=== PATIENT | male | born 1990 | race Caucasian/White ===

== ENCOUNTER 2016-07-10 10:10 | Emergency (ER) | payer OTHER ==
[~2016-07-10] VITALS: Ht 170.2 cm; Wt 81.6 kg
[2016-07-10 10:14] VITALS: BP 126/74
--- NOTE | 2016-07-10 10:19 | NUR ---
PT AMBULATED TO 4 AT THIS TIME. Addendum: 07/10/16 at 1020 by [facility] PT AMBULATED TOBED 3 AT THIS TIME.
[2016-07-10] MEDS ORDERED: ONDANSETRON 4 MG ODT PO ONE (10:30)
--- NOTE | 2016-07-10 10:40 | NUR ---
Bernadette AT BEDSIDE.
[2016-07-10 11:04] VITALS: BP 126/74
--- NOTE | 2016-07-10 11:04 | NUR ---
Patient discharged with v/s stable. Written and verbal after care instructions given and explained. Patient alert, oriented and verbalized understanding of instructions. Ambulatory with steady gait. All questions addressed prior to discharge. ID band removed. Patient advised to follow up with PMD. Rx of BENTYL AND ZOFRAN given. Patient educated on indication of medication including possible reaction and side effects. Opportunity to ask questions provided and answered.
== END 2016-07-10 11:04 | disposition home or self-care (01) ==
LOC: MED 10:10
DX: G89.29 Other chronic pain (principal); R10.9 Unspecified abdominal pain; R11.2 Nausea with vomiting, unspecified; R19.7 Diarrhea, unspecified; J45.909 Unspecified asthma, uncomplicated; Z88.0 Allergy status to penicillin; Z88.6 Allergy status to analgesic agent
CPT/HCPCS: 99283; S0119

== ENCOUNTER 2016-10-16 19:40 | Emergency (ER) | payer OTHER ==
[~2016-10-16] VITALS: Ht 170.2 cm; Wt 74.8 kg
[2016-10-16 19:49] VITALS: BP 125/86
--- NOTE | 2016-10-16 19:58 | NUR ---
Patient ambulated to bed 08.
--- NOTE | 2016-10-16 20:10 | NUR ---
26 Y/O M W/C/O LACERATION TO R HAND R/T LACERATION X TODAY. BLEEDING UNDER CONTROL. PA MADE AWARE.
[2016-10-16] MEDS ORDERED: BACITRACIN OINT 500 UNITS/GM PKT TP ONE (20:27)
--- NOTE | 2016-10-16 20:27 | NUR ---
PT REFUSED XRAY, PA NOTIFIED.
--- NOTE | 2016-10-16 20:35 | NUR ---
LIDOCAINE 1 % ADMINSITERED BY PA TO LACERATION R HAND.
[2016-10-16] MEDS ORDERED: LIDOCAINE 1% 500 MG/50 ML VIAL INJ ONE (21:05)
[2016-10-16 21:24] VITALS: BP 127/75
--- NOTE | 2016-10-16 21:24 | NUR ---
Patient discharged with v/s stable. Written and verbal after care instructions given and explained. Patient alert, oriented and verbalized understanding of instructions. Ambulatory with steady gait. All questions addressed prior to discharge. ID band removed. Patient advised to follow up with PMD IN 3 DAYS OR RETURN TO ER IF CONDITION WORSENS. Rx of KEFLEX, MOTRIN given. Patient educated on indication of medication including possible reaction and side effects. Opportunity to ask questions provided and answered.
== END 2016-10-16 21:24 | disposition home or self-care (01) ==
LOC: MED 19:40
DX: S61.411A Laceration without foreign body of right hand, initial encounter (principal); W22.8XXA Striking against or struck by other objects, initial encounter; Y93.89 Activity, other specified; Y92.89 Other specified places as the place of occurrence of the external cause; Y99.8 Other external cause status
CPT/HCPCS: 12001; 90471; 90715; 99283

== ENCOUNTER 2017-11-20 11:14 | Emergency (ER) | payer OTHER ==
[~2017-11-20] VITALS: Ht 172.7 cm; Wt 81.6 kg
[2017-11-20 11:18] VITALS: BP 146/112
--- NOTE | 2017-11-20 11:23 | NUR ---
PT AMBULATES TO BED 2 Addendum: 11/20/17 at 1136 by [email or web address] REPORT GIVEN TO MANUEL ESQUIVEL
[2017-11-20] MEDS ORDERED: HYDROcodone/APAP 5/325 MG 1 TAB TAB PO ONE (11:35)
[2017-11-20] MEDS ORDERED: cefTRIAXone 1,000 MG in LIDOCAINE 1% ***ER ONLY *** 2.1 ML IM ONE (11:35)
--- NOTE | 2017-11-20 11:35 | NUR ---
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 BLEEDING BEING CONTROLLED WITH PROVIDED GAUZE PADS. AAOX4. GCS 15. CMS INTACT. RR EVEN AND UNLABORED. LUNGS CLEAR. FULL ROM. PULSES PALPABLE. BUITRAGO REFILL LESS THAN 3 SECONDS. ER MD NOTIFIED. PT NEEDS MET. SAFETY PRECAUTIONS IN PLACE. WILL CONTINUE TO MONITOR.
[2017-11-20] MEDS ORDERED: LIDOCAINE MPF 1% - 5 mL VIAL 20 ML ONE (11:52)
[2017-11-20] MEDS ORDERED: cefTRIAXone 1,000 MG VIAL ONE (11:53)
--- NOTE | 2017-11-20 12:10 | NUR ---
pt resting on [facility] at this time w/ vss, rr even and unlabored. safety precautions in place. will continue to monitor.
[2017-11-20] MEDS ORDERED: BACITRACIN OINT 500 UNITS/GM PKT TP ONE (12:44)
[2017-11-20] MEDS ORDERED: NEOMYCIN/POLYMYXIN/BACITRACIN 0.9 GM/1 PKT TP ONE (12:45)
[2017-11-20 12:49] VITALS: BP 132/96
--- NOTE | 2017-11-20 12:50 | NUR ---
Patient discharged with v/s stable. Written and verbal after care instructions given and explained. Patient alert, oriented and verbalized understanding of instructions. Ambulatory with steady gait. All questions addressed prior to discharge. ID band removed. Patient advised to follow up with PMD. Rx of Fioricet, Tramdol, Clindamycin given. Patient educated on indication of medication including possible reaction and side effects. Opportunity to ask questions provided and answered.
== END 2017-11-20 12:50 | disposition home or self-care (01) ==
LOC: MED 11:14
DX: S61.412A Laceration without foreign body of left hand, initial encounter (principal); J45.909 Unspecified asthma, uncomplicated; R03.0 Elevated blood-pressure reading, without diagnosis of hypertension; Z88.0 Allergy status to penicillin; Z88.6 Allergy status to analgesic agent; X58.XXXA Exposure to other specified factors, initial encounter; Y93.89 Activity, other specified; Y92.89 Other specified places as the place of occurrence of the external cause; Y99.8 Other external cause status
CPT/HCPCS: 12002; 96372; 99283; J0696; J2001

== ENCOUNTER 2020-03-25 15:28 | Emergency (ER) | payer SELFPAY ==
[~2020-03-25] VITALS: Ht 170.2 cm; Wt 86.2 kg
[2020-03-25 15:38] VITALS: BP 121/79
--- NOTE | 2020-03-25 15:43 | NUR ---
TENT OF1
--- NOTE | 2020-03-25 16:05 | NUR ---
C/O COUGH, GORDON, BODY ACHE X 5 DAYS.MED HX: ASTHMA.
--- NOTE | 2020-03-25 17:00 | NUR ---
COVID SWAB DONE.
--- NOTE | 2020-03-25 17:00 | NUR ---
Patient discharged with v/s stable. Written and verbal after care instructions given and explained. Patient alert, oriented and verbalized understanding of instructions. Ambulatory with steady gait. All questions addressed prior to discharge. ID band removed. Patient advised to follow up with PMD. Rx of PROMETHAZINE & TYLENOL given. Patient educated on indication of medication including possible reaction and side effects. Opportunity to ask questions provided and answered.
[2020-03-25 17:01] VITALS: BP 121/79
== END 2020-03-25 17:00 | disposition home or self-care (01) ==
LOC: MED 15:28
DX: R05 Cough (principal); M79.10 Myalgia, unspecified site; J45.909 Unspecified asthma, uncomplicated; Z88.0 Allergy status to penicillin; Z88.6 Allergy status to analgesic agent; Z20.828 Contact with and (suspected) exposure to other viral communicable diseases
CPT/HCPCS: 99283; U0003

== ENCOUNTER 2020-12-29 11:05 | Emergency (ER) | payer SELFPAY ==
--- NOTE | 2020-12-29 11:20 | NUR ---
CALLED OUT TO PATIENT, NOT IN LOBBY
--- NOTE | 2020-12-29 11:27 | NUR ---
CALLED OUT TO PATIENT, NOT IN LOBBY
--- NOTE | 2020-12-29 11:36 | NUR ---
PATIENT LEFT WITHOUT BEING TRIAGED NO FURTHER CARE PROVIDED FOR PATIENT.
== END 2020-12-29 11:40 | disposition left against medical advice (07) ==
LOC: MED 11:05
DX: Z53.21 Procedure and treatment not carried out due to patient leaving prior to being seen by health care provider (principal)
CPT/HCPCS: 99283